=== PATIENT | female | born 1960 | race Two or more races ===

== ENCOUNTER → 2017-02-22 | Outpatient (CLI) | payer OTHER ==
--- NOTE | 2017-02-22 15:35 | KCIC ---
Examination: MRI of the left forefoot without contrast HISTORY: History of left foot pain, swelling of the first MTP joint COMPARISON: None available TECHNIQUE: Multiplanar, multisequence MR imaging of the left forefoot were performed without contrast. FINDINGS: The alignment of the metatarsophalangeal joints, interphalangeal joints grossly appears unremarkable. Minimal amount of joint effusion identified at the first MTP joint. There is mild degenerative changes identified at the first MTP joint. The visualized plantar plate, sesamoidphalangeal ligament grossly appears unremarkable. There is no acute fracture identified. The visualized Lisfranc ligament appears intact. Minimal amount of fluid identified in the knot of Yves region probably physiological. There is low T1 signal identified in the distal aspect of the proximal phalanx of the fifth digit with no corresponding increased STIR, is probably artifactual. Fat is present within the sinus tarsi. IMPRESSION: 1. Minimal joint effusion identified in the first MTP joint, nonspecific with mild degenerative changes. 2. There is low T1 signal identified in the distal aspect of the proximal phalanx of the fifth digit with no corresponding increased STIR, is probably artifactual. Correlate clinically. Electronically signed by: David Culp MD (02/22/2017 3:31 PM) [id number]
== END | disposition home or self-care (01) ==
LOC: KCIC MRI 12:57
PROVIDERS: ATTEND Nurse Practitioner Gerontology
DX: M25.475 Effusion, left foot (principal); M79.672 Pain in left foot; M79.89 Other specified soft tissue disorders
CPT/HCPCS: 73718